=== PATIENT | female | born 1995 | race Hispanic/Latino ===

== ENCOUNTER 2018-01-09 18:00 | Emergency (ER) | payer OTHER | END 2018-01-09 21:30 | disposition home or self-care (01) | LOC: M ED 18:00 | DX: M72.2 Plantar fascial fibromatosis (principal) | CPT/HCPCS: 73610 ==

== ENCOUNTER 2018-03-07 20:59 | Emergency (ER) | payer OTHER ==
[2018-03-07] MEDS: KETOROLAC 60 MG/2 ML VIAL (J1885) IM (21:52)
== END 2018-03-08 00:01 | disposition home or self-care (01) ==
LOC: M ED 03-08 00:01
DX: S86.812A Strain of other muscle(s) and tendon(s) at lower leg level, left leg, initial encounter (principal); X50.1XXA Overexertion from prolonged static or awkward postures, initial encounter; Y92.39 Other specified sports and athletic area as the place of occurrence of the external cause; Y93.B9 Activity, other involving muscle strengthening exercises; Y99.9 Unspecified external cause status; J45.909 Unspecified asthma, uncomplicated; Z79.899 Other long term (current) drug therapy; Z91.040 Latex allergy status; Z91.018 Allergy to other foods
CPT/HCPCS: J1885